=== PATIENT | male | born 1960 | race Caucasian/White ===

== ENCOUNTER 2021-08-20 15:27 | Emergency (ER) | payer SELFPAY ==
[~2021-08-20 15:27] MED LIST: Iopamidol 370 76% 100 ML VIAL ONE
[2021-08-20] MEDS ORDERED: Boostrix 0.5 ML (Tdap) VIAL ONE (16:39)
[2021-08-20] MEDS ORDERED: Ibuprofen 800 MG TAB ONE (17:21)
== END 2021-08-20 17:28 | disposition home or self-care (01) ==
LOC: MADERS 15:27
DX: S32.018A Other fracture of first lumbar vertebra, initial encounter for closed fracture (principal); S60.413A Abrasion of left middle finger, initial encounter; M25.531 Pain in right wrist; I10 Essential (primary) hypertension; F17.210 Nicotine dependence, cigarettes, uncomplicated; Z79.899 Other long term (current) drug therapy; W11.XXXA Fall on and from ladder, initial encounter
CPT/HCPCS: 74177; 90471; 90715; G0390; Q9967